=== PATIENT | male | born 1995 | race Caucasian/White ===

== ENCOUNTER 2016-05-25 10:58 | Emergency (ER) | payer OTHER ==
[2016-05-25] MEDS ORDERED: Albuterol 2.5 MG/3 ML NEB.SOL* (0.083%) INH ONE ×2 (11:14→13:33)
[2016-05-25] MEDS ORDERED: NS 0.9% 1000 ML* 1,000 ML IV ONE (11:14)
[2016-05-25] MEDS ORDERED: methylPREDNISolone SOD SUCC* 125 MG 2 ML VIAL IV ONE (11:38)
[2016-05-25 11:54] LABS: Hematocrit 50 % (42-52); Hemoglobin 16.8 g/dl (14.0-18.0); Mean Corpuscular HGB Conc 33 g/dl (31-36); Mean Corpuscular Hemoglobin 30 pg (27-31); Mean Corpuscular Volume 91 fL (80-94); Mean Platelet Volume 8 um3 (7.4-10.4); Red Blood Count 5.56 10^6/ul (4.0-5.4); Red Cell Distribution Width 13 % (10.5-15); White Blood Count 9.7 10^3/ul (3.5-10.8)
--- NOTE | 2016-05-25 11:58 | RAD ---
HISTORY: Shortness of breath COMPARISONS: March 19, 2016 VIEWS:1: Single frontal portable view of the chest at 11:23 AM FINDINGS: LINES AND TUBES: None. CARDIOMEDIASTINAL SILHOUETTE: The cardiomediastinal silhouette is normal for portable technique. PLEURA: The costophrenic angles are sharp. No pleural abnormalities are noted. LUNG PARENCHYMA: The lungs are clear. ABDOMEN: The upper abdomen is clear. There is no subphrenic gas. BONES AND SOFT TISSUES: No bone or soft tissue abnormalities are noted. IMPRESSION: NO ACTIVE CARDIOPULMONARY DISEASE.
[2016-05-25 12:10] LABS: Albumin 4.6 g/dL (3.2-5.2); Calcium 9.4 mg/dL (8.6-10.3); EGFR African American 121.3 (>60); EGFR Non-African American 94.3 (>60); Globulin 2.3 g/dL (2-4); Potassium 4.4 mmol/L (3.5-5.0); Total Bilirubin 0.9 mg/dL (0.2-1.0); Total Protein 6.9 g/dL (6.4-8.9)
[2016-05-25 15:18] VITALS: BP 133/65
--- NOTE | 2016-05-25 21:43 | ED ---
rajani Gomez Timothy, scribed for Mony Duggan MD on 05/25/16 at 1126 . Respiratory - HPI Summary HPI Summary: Kilo Hussein is a 21 yo male presenting to [facility] with dyspnea, cough, nasal congestion, 7/10 [place] since 05/22/16, worsening since last night. He denies Hx of asthma. Per triage, he presents with expiratory wheezing. His MHx includes hay fever. Required inhalers for bronchitis in Mar 2016. - History of Current Complaint Chief Complaint: EDShortnessOfBreath Stated Complaint: SHORT OF BREAATH Time Seen by Provider: 05/25/16 11:13 Hx Obtained From: Patient Onset/Duration: Gradual Onset, Lasting Days, Still Present, Worse Since - pm Timing: Constant Initial Severity: Moderate Current Severity: Moderate Pain Intensity: 7 Character: Wheezing, Cough (Productive) Sputum Amount: Moderate Sputum Color: Yellow Aggravating Factor(s): Allergens Alleviating Factor(s): Neb. Bronchodilators (Frequency Of Use) Associated Signs and Symptoms: SOB, Wheezing - Allergy/Home Medications Allergies/Adverse Reactions: Allergies Allergy/AdvReac Type Severity Reaction Status Date / Time hayfever Allergy Runny Nose Uncoded 05/25/16 12:04 PMH/Surg Hx/FS Hx/Imm Hx Previously Healthy: Yes Respiratory History: Reports: Hx Seasonal Allergies Sensory History: Reports: Hx Contacts or Glasses Opthamlomology History: Reports: Hx Contacts or Glasses - Surgical History Hx Anesthesia Reactions: No Infectious Disease History: Denies: Traveled Outside the [place] in Last 30 Days - Family History Known Family History: Positive: Unknown - Pt is adopted - Social History Occupation: Student Alcohol Use: ACUTE ETOH INTOXICATION Hx Substance Use: No Substance Use Type: Reports: Other Substance Use Comment - Amount & Last Used: unable to determine Hx Tobacco Use: No Smoking Status (MU): Unknown if Ever Smoked Have You Smoked in the Last Year: No Review of Systems Constitutional: Negative Eyes: Negative Positive: Nasal Discharge Cardiovascular: Negative Positive: Shortness Of Breath, Cough Gastrointestinal: Negative Genitourinary: Negative Musculoskeletal: Negative Skin: Negative Positive: Headache Psychological: Normal All Other Systems Reviewed And Are Negative: Yes Physical Exam Triage Information Reviewed: Yes Vital Signs On Initial Exam: Initial Vitals Temp Pulse Resp BP Pulse Ox 98.4 F 102 20 129/71 91 05/25/16 11:00 05/25/16 11:00 05/25/16 11:00 05/25/16 11:00 05/25/16 11:00 Vital Signs Reviewed: Yes Appearance: Positive: Well-Nourished, Ill-Appearing, Pain Distress Skin: Positive: Warm, Skin Color Reflects Adequate Perfusion, Dry Head/Face: Positive: Normal Head/Face Inspection Eyes: Positive: EOMI, Conjunctiva Clear ENT: Positive: Normal ENT inspection Neck: Positive: Supple, Nontender Respiratory/Lung Sounds: Positive: Breath Sounds Present, Wheezes - diffuse expiratory throughout Cardiovascular: Positive: RRR, Pulses are Symmetrical in both Upper and Lower Extremities. Negative: Murmur, Rub, Other - gallop Abdomen Description: Positive: Nontender, Soft Bowel Sounds: Positive: Present Musculoskeletal: Positive: Strength/ROM Intact. Negative: Stephanie Sign Left, Stephanie Sign Right, Edema Left, Edema Right Neurological: Positive: Sensory/Motor Intact, Alert, Oriented to Person Place, Time. Negative: Focal Deficit @ Psychiatric: Positive: Normal, Affect/Mood Appropriate Diagnostics - Vital Signs Vital Signs Temp Pulse Resp BP Pulse Ox 05/25/16 11:00 98.4 F 102 20 129/71 91 - Laboratory Lab Results: Lab Results 05/25/16 05/25/16 Range/Units 11:45 11:45 WBC 9.7 (3.5-10.8) 10^3/ul RBC 5.56 H (4.0-5.4) 10^6/ul Hgb 16.8 (14.0-18.0) g/dl Hct 50 (42-52) % MCV 91 (80-94) fL MCH 30 (27-31) pg MCHC 33 (31-36) g/dl RDW 13 (10.5-15) % Plt Count 141 L (150-450) 10^3/ul MPV 8 (7.4-10.4) um3 Neut % (Auto) 84.7 H (38-83) % Lymph % (Auto) 7.0 L (25-47) % Craig % (Auto) 5.0 (1-9) % Eos % (Auto) 3.1 (0-6) % Baso % (Auto) 0.2 (0-2) % Absolute Neuts (auto) 8.2 H (1.5-7.7) 10^3/ul Absolute Lymphs (auto) 0.7 L (1.0-4.8) 10^3/ul Absolute Monos (auto) 0.5 (0-0.8) 10^3/ul Absolute Eos (auto) 0.3 (0-0.6) 10^3/ul Absolute Basos (auto) 0 (0-0.2) 10^3/ul Absolute Nucleated RBC 0.01 10^3/ul Nucleated RBC % 0.1 Sodium 134 (133-145) mmol/L Potassium 4.4 (3.5-5.0) mmol/L Chloride 101 (101-111) mmol/L Carbon Dioxide 28 (22-32) mmol/L Anion Gap 5 (2-11) mmol/L BUN 15 (6-24) mg/dL Creatinine 1.00 (0.67-1.17) mg/dL Est GFR ( Amer) 121.3 (>60) Est GFR (Non-Af Amer) 94.3 (>60) BUN/Creatinine Ratio 15.0 (8-20) Glucose 116 H (70-100) mg/dL Calcium 9.4 (8.6-10.3) mg/dL Total Bilirubin 0.90 (0.2-1.0) mg/dL AST 19 (13-39) U/L ALT 26 (7-52) U/L Alkaline Phosphatase 46 (34-104) U/L Total Protein 6.9 (6.4-8.9) g/dL Albumin 4.6 (3.2-5.2) g/dL Globulin 2.3 (2-4) g/dL Albumin/Globulin Ratio 2.0 (1-3) Result Diagrams: 05/25/16 11:45 05/25/16 11:45 Lab Statement: Any lab studies that have been ordered have been reviewed, and results considered in the medical decision making process. - Radiology CXR Xray Interpretation: No Acute Changes - IMPRESSION: NO ACTIVE CARDIOPULMONARY DISEASE. Radiology Interpretation Completed By: Radiologist - EKG 1132 Cardiac Rate: NL - 93 BPM EKG Interpretation: NSR @ 93 BPM, nml AV/IV, nonspecific ST-T wave changes. No acute changes. EKG Comparison: No Significant Change - compared to 03/24/14 Re-Evaluation - Re-Evaluation First Eval Re-Evaluation Time: 14:52 Change: Improved Comment: Pt feels much better, but is still wheezing. He has O2 sats of 94. He does not have an inhaler at home. Second Eval Re-Evaluation Time: 15:02 Change: Unchanged Comment: He is not on any antibiotics at this time. Disposition - Course Assessment/Plan: Kilo Gandhi is a 21 yo male presenting to [facility] with dyspnea, cough, and 7/10 [place] since 05/22/16. In the ED he was given IV fluids and albuterol breathing Tx, as well as solu-medrol. His EKG was WNL. His CXR suggested no acute disease. After clinical examinaion and review of his imaging studies and lab work he will be discharged home with asthmatic bronchitis and appropriate instructions. - Diagnoses Provider Diagnoses: Asthmatic bronchitis Discharge - Discharge Plan Condition: Stable Disposition: HOME Prescriptions: Albuterol HFA INHALER* [Ventolin HFA Inhaler*] 2 puff INH Q4H PRN #1 mdi PRN Reason: Shortness Of Breath Azithromycin TAB* [Zithromax TAB (Z-ZAFAR) 250 mg #6 tabs] 2 tab PO .TODAY, THEN 1 DAILY #1 zafar predniSONE TAB* [Deltasone TAB*] 40 mg PO DAILY #10 tab Patient Education Materials: Acute Bronchitis (ED) Forms: *Gen. Provider Communication, *Physical Education Release, *School Release Referrals: Claudia Anderson MD [Primary Care Provider] - 2 Days Additional Instructions: Please follow up with your primary care physician or [facility] regarding your visit to the emergency department today. Return to the emergency department with any new or recurring symptoms. The documentation as recorded by the rajani marley Timothy accurately reflects the service I personally performed and the decisions made by me, Mony Duggan MD.
== END 2016-05-25 15:17 | disposition home or self-care (01) ==
LOC: ED 10:58
DX: R06.2 Wheezing (principal); R05 Cough; R06.02 Shortness of breath; R51 Headache; J45.909 Unspecified asthma, uncomplicated
CPT/HCPCS: 36415; 71010; 80053; 85025; 93005; 94640; 96374; 99283; J2930

== ENCOUNTER 2017-03-25 01:31 | Emergency (ER) | payer OTHER ==
[2017-03-25] MEDS ORDERED: methylPREDNISolone 125 MG* 2 ML VIAL ONE (02:50)
[2017-03-25] MEDS ORDERED: diPHENhydraMINE IV* 50 MG/ML 1 ml VIAL (BENADRYL) ONE (02:50)
[2017-03-25] MEDS ORDERED: Famotidine IV* 10 MG/ML 2 ML (20 mg) ONE (02:50)
[2017-03-25] MEDS ORDERED: methylPREDNISolone 125 MG* 2 ML VIAL IV ONE (06:09)
[2017-03-25] MEDS ORDERED: Famotidine IV* 10 MG/ML 2 ML (20 mg) IV SLOW PU ONE (06:10)
[2017-03-25] MEDS ORDERED: diPHENhydraMINE IV* 50 MG/ML 1 ml VIAL (BENADRYL) IV ONE (06:11)
[2017-03-25 07:27] VITALS: BP 124/71
--- NOTE | 2017-03-25 08:17 | ED ---
Venice Gomez Nilda, scribed for Jose Manuel Christina MD on 03/25/17 at 0444 . Allergic Reaction/Systemic - HPI Summary HPI Summary: This patient is a 21 year old M presenting to [facility] with a chief complaint of constant allergic reaction symptoms since 2229. Pt is unsure of what caused the allergic reaction but possibilities include latex, Tide pods from laundry, and friends rabbit. He states he has not confirmed allergy to these items but notices that he would sometimes have reactions after being in contact with them. Patient reports sore throat, facial swelling, pruritic hives on back, and hives on chest (resolved). He notes recent Dx of bronchitis that is being treated with azithromycin. Other medications include Benadryl, albuterol and Dayquil. At midnight patient took Benadryl (25 mg) and facial swelling remained unchanged. Symptoms aggravated by nothing and alleviated by shower. - History of Current Complaint Chief Complaint: EDAllergicReaction Time Seen by Provider: 03/25/17 03:22 Hx Obtained From: Patient Onset/Duration: Sudden Onset, Started hours ago, Still Present Timing: Constant Pain Intensity: 0 Pain Scale Used: 0-10 Numeric Location: Discrete @ - facial swelling, hives on chest and back Character: Swelling, Pruritus, Hives Aggravating Factor(s): Nothing Alleviating Factor(s): Other - shower Associated Signs And Symptoms: Positive: Other: - sore throat, facial swelling, pruritic hives on back, and hives on chest (resolved). - Allergies/Home Medications Allergies/Adverse Reactions: Allergies Allergy/AdvReac Type Severity Reaction Status Date / Time hayfever Allergy Runny Nose Uncoded 05/25/16 12:04 PMH/Surg Hx/FS Hx/Imm Hx Respiratory History: Reports: Hx Seasonal Allergies Sensory History: Reports: Hx Contacts or Glasses Opthamlomology History: Reports: Hx Contacts or Glasses - Surgical History Hx Anesthesia Reactions: No Infectious Disease History: No Infectious Disease History: Denies: Traveled Outside the [place] in Last 30 Days - Family History Known Family History: Positive: Unknown - Pt is adopted - Social History Alcohol Use: ACUTE ETOH INTOXICATION Hx Substance Use: No Substance Use Type: Reports: Other Substance Use Comment - Amount & Last Used: unable to determine Hx Tobacco Use: No Smoking Status (MU): Unknown if Ever Smoked Have You Smoked in the Last Year: No Review of Systems Positive: Sore Throat Positive: Other - facial swelling, pruritic hives on back, and hives on chest ( resolved). All Other Systems Reviewed And Are Negative: Yes Physical Exam - Summary Physical Exam Summary: General: well-appearing, no pain distress Skin: warm, color reflects adequate perfusion, dry, hives on back Head: swelling around lips Eyes: EOMI, [place] ENT: normal, voice normal Neck: supple, nontender Respiratory: CTA, breath sounds present Cardiovascular: RRR Abdomen: soft, nontender Bowel: present Musculoskeletal: normal, strength/ROM intact Neurological: normal, sensory/motor intact, A&O x3 Psychological: affect/mood appropriate Triage Information Reviewed: Yes Vital Signs On Initial Exam: Initial Vitals Temp Pulse Resp BP Pulse Ox 97.9 F 96 18 134/89 95 03/25/17 01:32 03/25/17 01:32 03/25/17 01:32 03/25/17 01:32 03/25/17 01:32 Vital Signs Reviewed: Yes Diagnostics - Vital Signs Vital Signs Temp Pulse Resp BP Pulse Ox 03/25/17 01:32 97.9 F 96 18 134/89 95 - Laboratory Lab Statement: Any lab studies that have been ordered have been reviewed, and results considered in the medical decision making process. Allergic Reaction Course/Dx - Course Assessment/Plan: This patient is a 21 year old M presenting to [facility] with a chief complaint of constant allergic reaction symptoms since 2229. Pt is unsure of what caused the allergic reaction but possibilities include latex, Tide pods from laundry, and friends rabbit. He states he has not confirmed allergy to these items but notices that he would sometimes have reactions after being in contact with them. Patient reports sore throat, facial swelling, pruritic hives on back, and hives on chest (resolved). He notes recent Dx of bronchitis that is being treated with azithromycin. Other medications include Benadryl, albuterol and Dayquil. At midnight patient took Benadryl (25 mg) and facial swelling remained unchanged. Symptoms aggravated by nothing and alleviated by shower. Allergies noted. Medications reviewed. BP noted and advised to follow up with PCP. IMPROVED IN THE ED. F/U PMD; RETURN IF WORSE. - Diagnoses Provider Diagnoses: Blood pressure elevated without history of HTN, Allergic reaction Discharge - Discharge Plan Condition: Stable Disposition: HOME Prescriptions: Famotidine TAB* [Pepcid 20 MG TAB*] 20 mg PO BID PRN #8 tab PRN Reason: Allergy Symptoms predniSONE TAB* [Deltasone TAB*] 40 mg PO DAILY #8 tab Patient Education Materials: General Allergic Reaction (ED) Referrals: Claudia Anderson MD [Primary Care Provider] - Additional Instructions: FOLLOW UP WITH YOUR DOCTOR. TAKE BENADRYL 50MG EVERY 6 HOURS NEEDED. TAKE PEPCID 20MG TWICE A DAY NEEDED. TAKE THE PREDNISONE DIRECTED NEEDED. RETURN TO THE EMERGENCY DEPARTMENT FOR ANY WORSENING OF YOUR CONDITION OR QUESTIONS OR CONCERNS. Your blood pressure was elevated during todays visit; please follow up with your primary care provider within a week for further evaluation. The documentation as recorded by the Venice marley Nilda accurately reflects the service I personally performed and the decisions made by me, Jose Manuel Christina MD.
== END 2017-03-25 06:35 | disposition home or self-care (01) ==
LOC: ED 01:31
DX: R03.0 Elevated blood-pressure reading, without diagnosis of hypertension (principal); T78.40XA Allergy, unspecified, initial encounter; J02.9 Acute pharyngitis, unspecified; X58.XXXA Exposure to other specified factors, initial encounter
CPT/HCPCS: 99282; J1200; J2930

== ENCOUNTER → 2018-05-26 07:31 | Day surgery (SDC) | payer BC ==
[~2018-05-26 07:31] MED LIST: Buffered Lidocaine 1% SYRIN* 1 ML/SYRINGE INTRADERM ONE; Bupivacaine 0.25% SDV PF* 10 ML VIAL INJ ONE; Dexamethasone IV* 4 MG/ML 1 ML (4 MG) ONE; DiMENhydriNATE IV* 50 MG/ML VIAL IV PUSH PRN; DiMENhydriNATE IV* 50 MG/ML VIAL ONE; Famotidine IV* 10 MG/ML 2 ML (20 mg) IV ONE; Famotidine IV* 10 MG/ML 2 ML (20 mg) ONE; HYDROcodone/ACETAMIN 5-325 MG* 1 TAB ONE; HYDROcodone/ACETAMIN 5-325 MG* 1 TAB PO PRN; HYDROmorphone INJ1* 1 MG/ML SYRINGE IV PRN; HYDROmorphone INJ1* 1 MG/ML SYRINGE ONE; Ketorolac INJ* 30 MG/ML 1 ML VIAL ONE; Lactated Ringers 1000 ML Bag* 1,000 ML IV SCH; Midazolam* 1 MG/ML 5 ML VIAL (5 MG) ONE; Naloxone* 0.4 MG/ML 1 ML VIAL IV PRN; Ondansetron INJ* 2 MG/ML VIAL ONE; Propofol* 10 MG/ML 20 ML BTL ONE; ceFAZolin 2 GM in NS PREMIX(*) 2 GM/100 ML BAG IVPB ONE; fentaNYL* 50 MCG/ML 2 ML VIAL (100 MCG VIAL) ONE
[2018-05-26 13:19] VITALS: BP 131/75
--- NOTE | 2018-05-26 15:09 | OP ---
Operative Report - Blank - Operative Report Date of Operation: 05/26/18 Note: PATIENT: Kilo Hussein DATE OF : 1995 DATE OF SURGERY: 05/26/2018 SURGEON: Tyrone Rushing MD HOUSEKEEPING COORDINATOR: REINALDO Ruff, whos assistance was necessary for positioning, retraction, help with instrumentation, and closure. ANESTHESIOLOGIST: Dr. Gann PREOPERATIVE DIAGNOSIS: Right ankle fracture POSTOPERATIVE DIAGNOSIS: Right ankle fracture OPERATION: 1. Right ankle lateral malleolar fracture open reduction and internal fixation. 2. Stress views performed by surgeon utilizing fluoroscopy under anesthesia. ANESTHESIA: General IMPLANTS: Arthrex plate and screws TOURNIQUET TIME: Less than 1 hour with a well-padded thigh tourniquet at 250mmHg SPECIMENS: none ESTIMATED BLOOD LOSS: minimal COMPLICATIONS: none STATUS: Stable from the operating room to the recovery room and then home. INDICATIONS FOR PROCEDURE: Kilo sustained a displaced right lateral malleolus fracture. Both operative and non operative treatment alternatives were reviewed. Further, the nature and risks of surgery were reviewed in careful detail, in the office as well as the pre-operative holding area. Our discussions regarding the risks of surgery included, but were not limited to, infection, wound problems, nerve injury, neuroma, RSD, persistent symptoms, blood clot, nonunion, malunion, post- traumatic arthritis, hardware failure, failure of the surgery, and even the remote chance of catastrophic complication, including loss of limb. DESCRIPTION OF PROCEDURE: The patient was seen in the preoperative holding unit and informed written consent was obtained. The appropriate extremity was marked. The patient was then brought to the operating room and carefully positioned on the operating room table. Anesthesia was induced. All bony prominences were padded with great care. A well-padded thigh tourniquet was placed. A chlorhexidine based pre- scrub was performed followed by a chloraprep prep and drape in standard sterile fashion. A surgical safety pause was then conducted in which we confirmed the appropriate patient, extremity, planned procedure, availability of equipment, indication and administration of prophylactic antibiotics, and DVT prophylaxis in the form of a compression boot on the non-surgical extremity. I began with Esmarch exsanguination of the limb and inflated the tourniquet. I then utilized a laterally based incision overlying the distal fibula. Great care was taken to protect the superficial peroneal nerve, which did cross our field of view. I dissected down through the soft tissue layers to expose the distal fibula. I then exposed the fracture. Fracture hematoma was removed. I gained a reduction utilizing a pointed reduction clamp. A 3.5mm cortical lag screw was placed perpendicular to the fracture plane. I placed an anatomic distal fibula Arthrex plate laterally and then confirmed the reduction and the position of the plate fluoroscopically. I placed screws to hold the plate to the bone. The provisional fixation was removed and then I again confirmed fluoroscopically the appropriate position of the plate and screw lengths. At this point, I performed a stress fluoroscopic examination. I utilized a Cotton test, as well as an external rotation stress test, to evaluate the distal tib-fib syndesmosis. There was no instability appreciated through the syndesmosis. At this point, we irrigated copiously and then closed in layers meticulously utilizing 3-0 Monocryl for the deep and subdermal layers and 3-0 Nylon for the skin. A sterile dressing was then applied followed by a splint with the ankle in a neutral position. The patient was then awakened from anesthesia and transferred to the recovery room in stable condition. There were no complications. All needle and sponge counts were correct at the end of the case. ATTESTATION: I attest I was present and scrubbed and performed the critical portions of the procedure myself. POSTOPERATIVE PLAN: The postop plan is for [id number] for an anticipated duration of 6 weeks. Follow-up will be in 2 weeks. At that time we will likely transition into a [id number] aircast boot.
== END | disposition home or self-care (01) ==
LOC: OR 07:31
PROVIDERS: ATTEND Orthopaedic Surgery
DX: S82.61XA Displaced fracture of lateral malleolus of right fibula, initial encounter for closed fracture (principal); W03.XXXA Other fall on same level due to collision with another person, initial encounter; Y93.65 Activity, lacrosse and field hockey; Y92.328 Other athletic field as the place of occurrence of the external cause
CPT/HCPCS: 76000; C1713; C1776; J0690; J1100; J1170; J1240; J1885; J2250; J2405; J2704; J3010; J3490